=== PATIENT | female | born 1975 | race Caucasian/White ===

== ENCOUNTER 2025-11-02 02:32 | Inpatient (IN) | payer OTHER, SELFPAY ==
[2025-11-02] VITALS (27 sets, daily range): BP systolic 92–163; BP diastolic 49–106; PULSE 79–100; RESP 11–24; TEMP 36.4–36.8; O2SAT 92–99; BMI 29.9
--- NOTE | 2025-11-02 02:51 | ED.ABDPAIN ---
HPI - Abdominal Pain General Chief Complaint: Abdominal Pain Stated Complaint: R Side Pain Time Seen by Provider: 11/02/25 02:50 Source: patient Mode of arrival: Ambulatory History of Present Illness HPI narrative: 49y F hx of hysterectomy presents with RLQ pain that started at 1230am. Pt last ate yesterday afternoon. Has not had a bm since Thursday. Denies n/v/d, chest/back pain, sob, montero, leg pain/swelling, fever, chills, bodyache, urinary complaints. Other than what is stated 14 pt ROS is negative. Related Data Previous Rx's ?Medication ?Instructions ?Recorded amoxicillin 875 mg-potassium 875 mg (0.88 x 875-125 mg) PO Q8H 10/19/16 clavulanate 125 mg tablet #20 tabs (Augmentin) indomethacin 50 mg capsule 50 mg PO Q DAY #20 caps 10/19/16 Allergies Allergy/AdvReac Type Severity Reaction Status Date / Time No Known Drug Allergies Allergy Verified 11/02/25 02:42 Review of Systems Review of Systems ROS Unobtainable: All systems reviewed & are unremarkable except as noted in HPI and below Patient History tobacco type: vaping Exam Narrative Exam Narrative: GENERAL: [49] year old patient appears stated age. Well-developed patient, in mild distress. HEAD: Atraumatic. Normocephalic. EYES: Pupils equal round and reactive. Extraocular motions intact. No scleral icterus. No injection or drainage. ENT: Nose without bleeding, purulent drainage. Throat without erythema, tonsillar hypertrophy or exudate. Airway patent. NECK: Trachea midline. Non tender CARDIOVASCULAR: Regular rate and rhythm without murmurs, gallops, or rubs. RESPIRATORY: Clear to auscultation. Breath sounds equal bilaterally. No wheezes, rales, or rhonchi. GASTROINTESTINAL: Abdomen soft, non-tender, nondistended. EXTREMITIES: No edema or joint tenderness. BACK: Nontender without deformity or crepitance. No flank tenderness. NEURO: AOx3. SKIN: No rash or erythema of visible areas Initial Vital Signs Initial Vital Signs: Vital Signs Pulse Rate 100 H 11/02/25 02:39 Blood Pressure 129/85 11/02/25 02:39 Pulse Oximetry 95 11/02/25 02:39 Oxygen Delivery Method Room Air 11/02/25 02:39 Course Orders Ordered: ED Orders 12/18/25 02:48 Complete Blood Count AUTO DIFF Stat Comprehensive Metabolic Panel Stat Lipase Stat 11/02/25 03:01 CT abdomen pelvis w con Stat Ondansetron HCl (Ondansetron 4 Mg/2 Ml Inj) 4 mg IV NOW PRN PRN Reason: Nausea And Vomiting Ondansetron HCl (Ondansetron 4 Mg Odt) 4 mg PO NOW PRN PRN Reason: Nausea And Vomiting Discontinued Medications Hydromorphone HCl (Hydromorphone 1 Mg/Ml Syringe) 1 mg IV NOW ONE Stop: 11/02/25 03:38 Last Admin: 11/02/25 03:41 Dose: 1 mg Documented By: FRANKIE Lactated Ringer's (Lactated Ringers) 1,000 mls @ 1,000 mls/hr IV BOLUS ONE Stop: 11/02/25 04:01 Last Admin: 11/02/25 03:04 Dose: 1,000 mls/hr Documented By: FRANKIE Ketorolac Tromethamine (Ketorolac 30 Mg/Ml Vial) 15 mg IV NOW ONE Stop: 11/02/25 03:03 Last Admin: 11/02/25 03:05 Dose: 15 mg Documented By: FRANKIE Vital Signs Vital signs: Vital Signs - 8 hr 11/02/25 02:39 11/02/25 02:39 11/02/25 02:41 Temperature 97.6 F Pulse Rate 100 H 98 H Respiratory Rate 22 Blood Pressure 129/85 129/85 Pulse Oximetry 95 98 Oxygen Delivery Method Room Air Room Air 11/02/25 03:00 11/02/25 03:00 11/02/25 03:31 Temperature Pulse Rate 93 H 91 H Respiratory Rate 24 Blood Pressure 130/95 H Pulse Oximetry 97 97 Oxygen Delivery Method Room Air Room Air 11/02/25 03:46 11/02/25 03:46 Temperature Pulse Rate 92 H Respiratory Rate 24 Blood Pressure 129/75 Pulse Oximetry 99 Oxygen Delivery Method Room Air MDM - Abdominal Pain Lab Data 11/02/25 02:48 11/02/25 02:48 Labs: Lab Results 11/02/25 Range/Units 02:48 WBC 5.6 (4.5-11.0) X10^3/uL RBC 4.01 (4.0-5.2) X10^6/uL Hgb 13.5 (12.0-16.0) g/dL Hct 37.9 (36-46) % MCV 94.6 (80-100) fL MCH 33.7 (26-34) PG MCHC 35.6 (30-36) % RDW 12.7 (11.6-14.8) % Plt Count 285 (150-400) X10^3/uL Neut % (Auto) 51.0 (50-75) % Lymph % (Auto) 40.2 H (25-40) % [place] % (Auto) 6.2 (3-14) % Eos % (Auto) 1.4 L (2-4) % Baso % (Auto) 1.2 (0-2) % Neut # (Auto) 2800 (9494-6926) /uL Lymph # (Auto) 2200 (5372-9071) /uL [place] # (Auto) 300 (0-900) /uL Eos # (Auto) 100 (0-450) /uL Baso # (Auto) 100 (0-100) /uL Sodium 144 (137-145) mmol/L Potassium 4.4 (3.4-5.1) mmol/L Chloride 106 (98-107) mmol/L Carbon Dioxide 24 (22-32) mmol/L BUN 11 (7-17) mg/dL Creatinine 0.78 (0.52-1.04) mg/dL Estimated GFR > 60 (>60) mL/min BUN/Creatinine Ratio 14.1 (6-22) Glucose 114 H (70-99) mg/dL Calcium 9.5 (8.4-10.2) mg/dL Total Bilirubin 0.5 (0.2-1.3) mg/dL AST 25 (14-36) IU/L ALT 20 (<35) IU/L Alkaline Phosphatase 69 (38-126) U/L Total Protein 7.9 (6.3-8.2) g/dL Albumin 5.0 (3.5-5.0) g/dL Globulin 2.9 (1.7-4.1) g/dL Albumin/Globulin Ratio 1.7 (1.0-2.8) Lipase 3389 H (23-300) U/L Point of care testing: Urine Dip Bedside Urine Glucose Negative Bedside Urine Bilirubin - Negative Bedside Urine Ketone - Negative Urine Specific [place] 1.005 Bedside Urine Occult Blood - Negative Bedside Urine pH 6.0 Bedside Urine Protein - Negative Bedside Urine Urobilinogen - Negative Bedside Urine Nitrite - Negative Bedside Urine Leukocytes - Negative Esterase MDM Narrative Medical decision making narrative: All labwork, vital signs, casino cage manager note, medication list, previous ER visits and all imaging studies reviewed. WBC 5.6 hg 13.5 plt 285, lfts nml, tbili nml, lipase 3389. Ct scan showed no acute abnormality identified. Unremarkable appendix. Prior hysterectomy. Pt given LR 1L bolus x 2, toradol 15mg IV and dilaudid 1mg IV x2. Urine nml Differential dx appendicitis, cholecystitis, pancreatitis, sbo, constipation, kidney stone, kidney infection, diverticulitis. Case d/w hospitalist who has graciously accepted pt for inpatient admission Discharge Plan Departure Patient Disposition: Admitted as Observation Clinical Impression: Acute pancreatitis Admit Date/Time: 11/02/25 05:00 Admit Provider: Nasra Ibarra
--- NOTE | 2025-11-02 03:01 | DI.CT.S_ITS ---
PROCEDURE: CT ABDOMEN PELVIS W CON INDICATIONS: RLQ pain TECHNIQUE: After the administration of intravenous contrast, axial sections acquired from the lung bases to the pubic symphysis. Coronal and sagittal reformats were performed. For radiation dose reduction, the following was used: automated exposure control, adjustment of mA and/or kV according to patient size. COMPARISON: None. FINDINGS: Image quality: Diagnostic. Lower Chest: No significant findings. ABDOMEN: Liver: No solid mass. Gallbladder: No radiopaque gallstones or wall thickening. Biliary ducts: No biliary dilation. Pancreas: No ductal dilation. Spleen: Size is within normal limits. Adrenal Glands: No adrenal nodules. Kidneys and Ureters: No hydronephrosis. No solid mass. No complex renal cystic lesion which requires follow up. Stomach and Bowel: Normal colonic caliber, without significant wall thickening. Normal appendix. Peritoneum: No abnormal intraperitoneal fluid. No free air. Ventral Wall: No significant ventral hernia. Abdominal Nodes: No retroperitoneal or mesenteric adenopathy by size criteria. Vessels: Aorta and inferior vena cava are normal in size. Atherosclerotic vascular calcifications. PELVIS: Pelvic Organs: Prior hysterectomy. Bladder: No bladder wall thickening, accounting for underdistention. Pelvic Nodes: No enlarged lymph nodes. Miscellaneous: No inguinal hernias are seen. Bones: No aggressive osseous abnormality. Mild degenerative changes. IMPRESSION: No acute findings within the abdomen or pelvis. Findings are concordant with preliminary interpretation provided by [facility]. Dictated by: Sunny Puente M.D. on 11/02/2025 at 8:16 Approved by: Sunny Puente M.D. on 11/02/2025 at 8:20
[2025-11-02 03:04] LABS: Add Manual Diff / Slide Review NO; Hematocrit 37.9 % (36-46); Hemoglobin 13.5 g/dL (12.0-16.0); Lymphocytes Absolute Auto 2200 /uL (1100-4500); Mean Corpuscular HGB Conc 35.6 % (30-36); Mean Corpuscular Hemoglobin 33.7 PG (26-34); Mean Corpuscular Volume 94.6 fL (80-100); Platelet Count 285 X10^3/uL (150-400)
[2025-11-02] MEDS: LACTATED RINGERS 1,000 ML 1000 ML IV ×2 (03:04→05:05)
[2025-11-02] MEDS: KETOROLAC 30 MG/ML VIAL 15 MG IV (03:05)
[2025-11-02 03:09] LABS: Alanine Aminotransferase 20 IU/L (<35); Albumin 5.0 g/dL (3.5-5.0); Albumin Globulin Ratio 1.7 (1.0-2.8); Alkaline Phosphatase 69 U/L (38-126); Blood Urea Nitrogen 11 mg/dL (7-17); Calcium 9.5 mg/dL (8.4-10.2); Carbon Dioxide 24 mmol/L (22-32); Chloride 106 mmol/L (98-107); Estimated Glomerular Filt Rate > 60 mL/min (>60); Globulin 2.9 g/dL (1.7-4.1); Glucose 114 mg/dL (70-99); HEMOLYSIS < 15 (0-50); Potassium 4.4 mmol/L (3.4-5.1); Sodium 144 mmol/L (137-145); Total Protein 7.9 g/dL (6.3-8.2)
[2025-11-02 03:20] LABS: Lipase 3389 U/L (23-300)
--- NOTE | 2025-11-02 03:21 | PC.NURSE ---
P to imaging via ED stretcher with oxygen equipment technician
--- NOTE | 2025-11-02 04:09 | PC.NURSE ---
Pt ambulatory to restroom with some increased pain while standing.
[2025-11-02] MEDS: ONDANSETRON 4 MG/2 ML INJ IV ×2 (05:06→16:59)
--- NOTE | 2025-11-02 06:47 | PC.NURSE ---
Ambulatory to restroom without difficulty or assistance
--- NOTE | 2025-11-02 09:28 | DI.US.S_ITS ---
PROCEDURE: US ABDOMEN LIMITED INDICATIONS: acute pancreatitis TECHNIQUE: Real-time scanning was performed of the abdominal and retroperitoneal organs, with image documentation. COMPARISON: None. FINDINGS: Liver: Liver is normal in size and homogeneous in echotexture. Gallbladder: No gallstones. No wall thickening. No pericholecystic edema. Negative sonographic Lares's sign. Biliary ducts: Intrahepatic bile ducts are non-dilated. Extrahepatic bile duct caliber measures 6.1 mm. Normal is 6-7 mm or less in diameter, or 10 mm or less post-cholecystectomy. Pancreas: Visualized portions of the pancreas are sonographically normal. Miscellaneous: No free abdominal fluid. IMPRESSION: Common bile duct measures 6 mm which is within normal limits. No visible stones. Dictated by: Sven Fernandes M.D. on 11/02/2025 at 9:59 Approved by: Sven Fernandes M.D. on 11/02/2025 at 10:00
--- NOTE | 2025-11-02 13:24 | PC.NURSE ---
Call back from provider Chelsy, patient ok to have clear liquids. Patient provided with cranberry juice.
[2025-11-02] MEDS: SODIUM CHLORIDE 0.9% 1,000 ML 100 ML IV (13:53)
--- NOTE | 2025-11-02 14:38 | CM.DANOTE ---
DCP Assessment Note: Pt is a 49yo female, resident [facility], is admitted for acute pancreatitis. Pt lives in a house with her spouse, Emmanuel. Pt's Primary Care Provider is MARY Rios and [facility]. Reviewed chart and discussed with multidisciplinary team pt's medical status and initial discharge needs. Per Provider, admitted for IV fluid and pain management. DCP met w/patient at bedside; introduced self and role. Patient was found in bed, alert and oriented, cooperative with assessment. Pt confirmed living situation and good support in . Pt expressed preference in discharge home when cleared. Pt has no prior history of SNF Rehab or home health. Plan: Anticipating discharge home with spouse when medically cleared. CM team will follow closely for coordination of discharge plans. LUAN Brown Discharge Planning/Care Management CM Discharge Assessment Start: 11/02/25 06:34 Freq: Status: Active Protocol: Document 11/02/25 14:36 MW (Rec: 11/02/25 14:38 MW [id number]) Discharge Planning Assessment Assigned Discharge MARIA FERNANDA Coronel Pencil Inspector Provider MARY Rios Insurance [employer] DPOA/Assigned Emmanuel Keenan, Spouse Designee Name Contact Information [phone] Advance Directives? No History Provided By Patient,Family Member,Medical Record Has Patient been No admitted in last 30 days? Prior Living House Arrangements Household Members spouse Type of Drives own vehicle transporation used prior to admit Independent with ADL Yes 's Is patient alert and Yes oriented? Discharge Plan Home Review Status In Process Please Provide Date 11/02/25 Initial DC Assessment Was Performed Next Review Type Continued Stay Review
[2025-11-02] MEDS: ENOXAPARIN 40 MG/0.4 ML SYRINGE SUBCUT (16:58)
[2025-11-02] MEDS: SODIUM CHLORIDE 0.9% 1,000 ML 125 ML IV ×2 (17:02→22:55)
--- NOTE | 2025-11-02 18:12 | P.HP_ITS ---
History of Present Illness History of Present Illness Date Patient Seen: 11/02/25 Time Patient Seen: 18:12 Chief complaint: R Side Pain Narrative: This is a very pleasant 49 year-old female who is under the care of Sarahi HERNANDEZ and is fairly healthy other than Insomnia, perimenopause, depression. Patient presents to the ER with sudden onset on the day of presentation 11/01/2025 of severe abdominal pain. Patient's pain is in the right lower quadrant. She is having nausea and vomiting and unable to keep anything down without pain increasing and becoming nauseated. Workup in the ER revealed CT scan of the abdomen and pelvis which were entirely normal. Subsequent abdominal ultrasound ordered by me showed no gallstones or gallbladder thickening or sludge no common bile duct dilatation or other abnormalities. Lipase was found to be 3300. Normal white blood cell count remainder of labs were normal and it was determined that likely she had pancreatitis in needed admitted for further treatment and care. Patient has been receiving pain control with IV Dilaudid and received IV Toradol in the ER official. Patient is also complaining of headache. She recently met with correlates on Thursday with complaints of increased more chronic headaches that she was awakening with in the frontal area of her head. They had thought possibly this was related to the estradiol topical that she was prescribed and she stopped this and it did not get better. Patient does take down to help with sleep there is about possible sleep apnea and therefore she is getting asleep study. Patient has not been on any new medications. She has taken trazodone for quite awhile and taken venlafaxine for years. Patient does drink alcohol on the weekends around 3 beers but not during the week. A 12 point review of systems is negative No diarrhea in fact patient's last bowel movement was Thursday she tends to have irregular are infrequent bowel movement but not constipation. No mucus or blood in her stool. No once. No dysuria. No fever, no cough, no chills, no chest pain, no shortness a breath, no decreased exercise tolerance PND or orthopnea. No rash no recent travel. Patient has had a lot of stress in terms of financial stress Past medical history: Depression Insomnia Possible obstructive sleep apnea Tobacco use Headaches Past surgical history Hysterectomy with unilateral cell pain though oophorectomy of the right ovary No other surgeries EGD and colonoscopy in 2020 due to rectal bleeding and abdominal complaints which were both entirely negative Health related behavior: Alcohol as above Patient vapes nicotine on a regular basis Occasional marijuana use No illicit drug use Family history: Mom at 84, she had coronary artery disease and had a heart attack. Mom had diabetes as well Dad in his 90s. Dad had strokes Patient has 1 brother and she thinks he is healthy Patient has 3 sisters and she thinks they are healthy Patient has 2 sons and a daughter her healthy Social history: The patient is and is remarried in her has been is present and supportive. Patient lives in [place] Patient has a son who is 30 who lives on his own in [place] and a son who is 18 and a daughter who is 21 who live with their father [facility] Social History household members: spouse Smoking Status: Current every day smoker alcohol intake: current Meds Home Medications and Allergies Home Medications ?Medication ?Instructions ?Recorded ?Confirmed ?Type trazodone 50 mg tablet 50 mg PO ONCE PM 11/02/25 History venlafaxine 150 mg 150 mg PO DAILY 11/02/25 History capsule,extended release 24 hr Allergies Allergy/AdvReac Type Severity Reaction Status Date / Time No Known Drug Allergies Allergy Verified 11/02/25 02:42 Exam Vital Signs (past 8 hours): - 11/02/25 10:30 11/02/25 11:00 11/02/25 11:17 Temperature Pulse Rate 80 83 Respiratory Rate Blood Pressure 132/74 Pulse Oximetry 92 95 11/02/25 11:17 11/02/25 11:30 11/02/25 11:30 Temperature Pulse Rate 82 86 Respiratory Rate Blood Pressure 122/56 L Pulse Oximetry 97 94 11/02/25 12:00 11/02/25 12:00 11/02/25 12:30 Temperature Pulse Rate 79 81 Respiratory Rate Blood Pressure 126/64 Pulse Oximetry 94 97 11/02/25 12:30 11/02/25 13:00 11/02/25 13:00 Temperature Pulse Rate 82 Respiratory Rate Blood Pressure 163/106 H 117/65 Pulse Oximetry 92 11/02/25 13:39 11/02/25 13:39 11/02/25 14:00 Temperature Pulse Rate 95 H 90 Respiratory Rate Blood Pressure 143/90 H Pulse Oximetry 94 92 12/18/25 14:00 11/02/25 14:30 11/02/25 14:30 Temperature Pulse Rate 90 Respiratory Rate Blood Pressure 146/83 H 154/88 H Pulse Oximetry 93 11/02/25 15:38 Temperature 97.7 F Pulse Rate 80 Respiratory Rate 18 Blood Pressure 142/95 H Pulse Oximetry 96 Oxygen Delivery Method Room Air Narrative Exam Narrative: Afebrile vital signs are stable Patient is alert and oriented x3 in no apparent distress in his excellent historian HEENT is unremarkable Neck is supple without adenopathy patient does have some paravertebral muscle spasm. No masses Chest: Clear to auscultation without wheezes rhonchi or crackles Cor: Regular rate rhythm with distant S1-S2 Abdomen: Positive bowel sounds but hypoactive. Patient is most tender in her right lower quadrant and minimally in the mid upper abdomen No guarding or rebound. No peritoneal signs no obvious hepatosplenomegaly Extremities no edema pulses intact Neurologic exam nonfocal Skin no rashes Objective Labs 11/02/25 02:48 11/02/25 02:48 Labs: Laboratory Results - last 24 hr 11/02/25 02:48 WBC 5.6 RBC 4.01 Hgb 13.5 Hct 37.9 MCV 94.6 MCH 33.7 MCHC 35.6 RDW 12.7 Plt Count 285 Neut % (Auto) 51.0 Lymph % (Auto) 40.2 H [place] % (Auto) 6.2 Eos % (Auto) 1.4 L Baso % (Auto) 1.2 Neut # (Auto) 2800 Lymph # (Auto) 2200 [place] # (Auto) 300 Eos # (Auto) 100 Baso # (Auto) 100 Sodium 144 Potassium 4.4 Chloride 106 Carbon Dioxide 24 BUN 11 Creatinine 0.78 Estimated GFR > 60 BUN/Creatinine Ratio 14.1 Glucose 114 H Calcium 9.5 Total Bilirubin 0.5 AST 25 ALT 20 Alkaline Phosphatase 69 Total Protein 7.9 Albumin 5.0 Globulin 2.9 Albumin/Globulin Ratio 1.7 Lipase 3389 H Assessment & Plan Assessment & Plan narrative: 49-year-old otherwise fairly healthy patient with abdominal pain, sudden onset and findings most suggestive of idiopathic pancreatitis though atypical presentation in the she is mainly hurting in her right lower quadrant CT scan shows no evidence of diverticulitis or coli lithiasis or nephrolithiasis or appendicitis. Plan: Patient will be admitted to the hospital Will provide pain control with IV Dilaudid. I do not think that this is contributing to the headaches but if they do not improve we may need to switch to morphine. Will provide lorazepam to take as needed perhaps this will help with the headache and help with the pain. We attempted clear liquid diet but patient was unable to tolerate so she will be NPO except for ice chips and meds with sips Will reassess labs in a.m. If symptoms not improving and still with primarily right lower quadrant pain will consult surgery Assessment 2. Headaches Plan: Will treat pain and provide lorazepam see if this is beneficial. Once tolerating p.o. we could try propranolol If not improving or worsening image head Assessment 3. Insomnia Plan: Sleep test as outpatient Continue trazodone Assessment 4. Depression Plan: Will continue venlafaxine 150 mg daily Assessment 5. Alcohol use. I do not think she is at risk for withdrawing but we will provide lorazepam to use as needed. I do not think alcohol is a etiology of pancreatitis at this time Code status is full code GI prophylaxis with pantoprazole DVT prophylaxis with Lovenox 76 minutes spent with the patient reviewing her clinic chart, ER workup, discussing with nursing and physicians in meeting with patient and her and formulating a plan and documentation Time-Based Coding :: [TOTAL MINUTES] spent with patient and on the chart (including review of chart, obtaining history, exam, reviewing outside data, placing orders, documenting exam and treatment plan, and counseling patient) on [DATE]. Quality VTE Deep Vein Thrombosis/Pulmonary Embolism Present on Admission: No
[2025-11-02] MEDS: PANTOPRAZOLE 40 MG VIAL IV (18:53)
[2025-11-02] MEDS: DOCUSATE 100 MG CAPSULE PO (23:54)
[2025-11-03 03:00] VITALS: BP 134/86; PULSE 58; RESP 15; TEMP 36.6; O2SAT 99
[2025-11-03 05:54] LABS: Alanine Aminotransferase 18 IU/L (<35); Albumin 4.0 g/dL (3.5-5.0); Albumin Globulin Ratio 1.6 (1.0-2.8); Alkaline Phosphatase 74 U/L (38-126); Amylase 72 U/L (30-110); Blood Urea Nitrogen 11 mg/dL (7-17); Calcium 8.2 mg/dL (8.4-10.2); Carbon Dioxide 27 mmol/L (22-32); Chloride 104 mmol/L (98-107); Estimated Glomerular Filt Rate > 60 mL/min (>60); Globulin 2.5 g/dL (1.7-4.1); Glucose 90 mg/dL (70-99); HEMOLYSIS < 15 (0-50); Potassium 3.8 mmol/L (3.4-5.1); Sodium 139 mmol/L (137-145); Total Protein 6.5 g/dL (6.3-8.2)
[2025-11-03 05:57] LABS: Lipase 134 U/L (23-300)
[2025-11-03 06:19] LABS: Add Manual Diff / Slide Review NO; Hematocrit 34.8 % (36-46); Hemoglobin 12.5 g/dL (12.0-16.0); Lymphocytes Absolute Auto 1800 /uL (1100-4500); Mean Corpuscular HGB Conc 36.0 % (30-36); Mean Corpuscular Hemoglobin 34.2 PG (26-34); Mean Corpuscular Volume 95.2 fL (80-100); Platelet Count 243 X10^3/uL (150-400)
[2025-11-03] MEDS: SODIUM CHLORIDE 0.9% 1,000 ML 125 ML IV (06:50)
[2025-11-03 08:00] VITALS: BP 147/97; PULSE 80; RESP 17; TEMP 36.7; O2SAT 98
[2025-11-03] MEDS: DOCUSATE 100 MG CAPSULE PO ×2 (08:10→20:25)
[2025-11-03] MEDS: VENLAFAXINE ER 75 MG CAP 150 MG PO (08:10)
[2025-11-03] MEDS: ENOXAPARIN 40 MG/0.4 ML SYRINGE SUBCUT (08:11)
[2025-11-03] MEDS: PANTOPRAZOLE 40 MG VIAL IV (08:12)
--- NOTE | 2025-11-03 13:23 | PM.PN.1 ---
Subjective Subjective Interval history: [facility]. Was admitted with pancreatitis with markedly high lipase. Normalized by today. Patient denies any consistent drinking. She is still feeling moderate amount of pain and having to use IV pain medication. She now describes the pain as lower quadrants slightly worse on the right than the left. Slightly nauseated although was able to eat some full liquids today. She has not had any blood in her stool or other change. She has had a hysterectomy with only her left ovary remaining. Patient otherwise just not feeling well today. With no definitive other findings Exam Vital Signs (past 8 hours): - 11/03/25 08:00 Temperature 98.0 F Pulse Rate 80 Respiratory Rate 17 Blood Pressure 147/97 H Pulse Oximetry 98 Oxygen Flow Rate 0 Oxygen Delivery Method Room Air Oxygen Flow Rate 0 Narrative Exam Narrative: Alert female fatigued in appearance in no acute distress HEENT exam is unremarkable mucous membranes moist neck supple without adenopathy JVD or bruits lungs are clear heart is regular rate and rhythm abdomen is soft positive bowel sounds she is got lower quadrant tenderness across the abdomen definitely worse on the right lower quadrant. No rebound no guarding. Skin color is normal Objective Labs 11/03/25 05:00 11/03/25 05:00 Labs: Laboratory Results - last 24 hr 11/03/25 05:00 WBC 5.2 RBC 3.66 L Hgb 12.5 Hct 34.8 L MCV 95.2 MCH 34.2 H MCHC 36.0 RDW 13.1 Plt Count 243 Neut % (Auto) 55.7 Lymph % (Auto) 35.2 [place] % (Auto) 6.5 Eos % (Auto) 1.7 L Baso % (Auto) 0.9 Neut # (Auto) 2900 Lymph # (Auto) 1800 [place] # (Auto) 300 Eos # (Auto) 100 Baso # (Auto) 0 Sodium 139 Potassium 3.8 Chloride 104 Carbon Dioxide 27 BUN 11 Creatinine 0.72 Estimated GFR > 60 BUN/Creatinine Ratio 15.3 Glucose 90 Calcium 8.2 L Total Bilirubin 0.9 AST 26 ALT 18 Alkaline Phosphatase 74 Total Protein 6.5 Albumin 4.0 Globulin 2.5 Albumin/Globulin Ratio 1.6 Amylase 72 Lipase 134 D [facility] Social History household members: spouse Smoking Status: Current every day smoker alcohol intake: current Assessment & Plan Assessment & Plan narrative: Abdominal pain. Patient initially presented what appeared to be pancreatitis. Possibly idiopathic. Certainly ultrasound did not show any stones CT scan showed no masses or abnormality of the pancreas. Lipase is normalized at this point. Now seems to be having lower quadrant discomfort. Certainly worse in the right side. Certainly does not have a surgical abdomen but I am not sure exactly what this represents. She has reported not to have an ovary on that side she does have her appendix I think it has a low likelihood this is appendicitis. Will check urine I do not see that 1 has been obtained kidney stones unlikely given normal CT scan but will check to make sure there was no blood or signs of infection. At this point could be an ileus secondary to her pancreatitis and just slowly improving. We will switch to oral pain meds. We increased her diet today. We will continue fluids. I suspect she will be here until tomorrow and hopefully will go from there. At this point will have Dr. Mock see to make sure I am not missing something. In the unlikely event that this is possibly secondary to her appendix. I think that is low likelihood. She understands. We will see how things go. I will check another L. Headaches. Appear to be resolving. Insomnia. Trazodone. Continue. Depression. Continue Effexor. Alcohol use said to not be very frequent. Is on lorazepam as needed. Will see how things go. Code status full GI prophylaxis on pantoprazole DVT prophylaxis on Lovenox Disposition. Still having moderate amount of pain. Maybe just related to her pancreatitis probably will be here through today maybe discharge tomorrow she continues to improve based on surgical consult. 55 minutes spent with patient chart review orders nursing dictation Time-Based Coding :: [TOTAL MINUTES] spent with patient and on the chart (including review of chart, obtaining history, exam, reviewing outside data, placing orders, documenting exam and treatment plan, and counseling patient) on [DATE]. Quality VTE Deep Vein Thrombosis/Pulmonary Embolism Present on Admission: No
[2025-11-03] MEDS: SODIUM CHLORIDE 0.9% 1,000 ML 75 ML IV (13:55)
--- NOTE | 2025-11-03 14:31 | PM.CN.IH.1 ---
History of Present Illness Consult details Date Patient Seen: 11/03/25 Time Patient Seen: 14:31 Chief complaint: R Side Pain Narrative: Stacey is a 49-year-old woman who presented to the emergency room with several days of abdominal pain. She was noted to have an elevated lipase of over [address] scan was normal. An ultrasound was performed which showed no cholelithiasis or sludge. Today her lipase is down to normal levels. She continues to have pain and decreased appetite. Meds Home Medications and Allergies Home Medications ?Medication ?Instructions ?Recorded ?Confirmed ?Type trazodone 50 mg tablet 50 mg PO ONCE PM 11/02/25 11/02/25 History venlafaxine 150 mg 150 mg PO DAILY 11/02/25 11/02/25 History capsule,extended release 24 hr Allergies Allergy/AdvReac Type Severity Reaction Status Date / Time No Known Drug Allergies Allergy Verified 11/02/25 02:42 Exam Vital Signs (past 8 hours): - 11/03/25 08:00 Temperature 98.0 F Pulse Rate 80 Respiratory Rate 17 Blood Pressure 147/97 H Pulse Oximetry 98 Oxygen Flow Rate 0 Oxygen Delivery Method Room Air Oxygen Flow Rate 0 Narrative Exam Narrative: Abdomen is soft, generalized tenderness to palpation without guarding Objective Labs 11/03/25 05:00 11/03/25 05:00 Labs: Laboratory Results - last 24 hr 11/03/25 05:00 WBC 5.2 RBC 3.66 L Hgb 12.5 Hct 34.8 L MCV 95.2 MCH 34.2 H MCHC 36.0 RDW 13.1 Plt Count 243 Neut % (Auto) 55.7 Lymph % (Auto) 35.2 [place] % (Auto) 6.5 Eos % (Auto) 1.7 L Baso % (Auto) 0.9 Neut # (Auto) 2900 Lymph # (Auto) 1800 [place] # (Auto) 300 Eos # (Auto) 100 Baso # (Auto) 0 Sodium 139 Potassium 3.8 Chloride 104 Carbon Dioxide 27 BUN 11 Creatinine 0.72 Estimated GFR > 60 BUN/Creatinine Ratio 15.3 Glucose 90 Calcium 8.2 L Total Bilirubin 0.9 AST 26 ALT 18 Alkaline Phosphatase 74 Total Protein 6.5 Albumin 4.0 Globulin 2.5 Albumin/Globulin Ratio 1.6 Amylase 72 Lipase 134 D PFSH Social History household members: spouse Tobacco & Substance Use Smoking Status: Current every day smoker alcohol intake: current Assessment & Plan Assessment and plan (1) Acute pancreatitis: Qualifiers: Pancreatitis type: unspecified pancreatitis type Acute pancreatitis complication: no infection or necrosis Qualified Code(s): K85.90 - Acute pancreatitis without necrosis or infection, unspecified Status: Acute Plan I agree with the current management strategy. Continue IV fluids and gradually advance diet as tolerates. No radiological indication of gallstone pancreatitis. Time-Based Coding :: [TOTAL MINUTES] spent with patient and on the chart (including review of chart, obtaining history, exam, reviewing outside data, placing orders, documenting exam and treatment plan, and counseling patient) on [DATE]. PROFEE Charge Codes Inpatient or Observation consultation: [id number]
[2025-11-03 14:34] LABS: Appearance Urine UA CLEAR; Bilirubin Urine UA NEGATIVE (NEGATIVE); Color Urine UA YELLOW; Glucose Urine UA NEGATIVE (Negative); Ketones Urine UA NEGATIVE (NEGATIVE); Leukocyte Esterase Urine UA NEGATIVE (NEGATIVE); Nitrite Urine UA NEGATIVE (Negative); Occult Blood Urine UA NEGATIVE (Negative); Protein Urine UA NEGATIVE (Negative); Specific Gravity Urine UA <=1.005 (1.000-1.035); Urobilinogen Urine UA 0.2 E.U./dL (0.2)
[2025-11-03 14:35] LABS: pH Urine UA 6.5 (4.5-8.0)
[2025-11-03 16:17] VITALS: BP 151/85; PULSE 80; RESP 19; TEMP 37; O2SAT 98
[2025-11-04] VITALS: BP 141/85; PULSE 73; RESP 16; TEMP 36.6; O2SAT 97
[2025-11-04] MEDS: SODIUM CHLORIDE 0.9% 1,000 ML 75 ML IV (05:20)
[2025-11-04 08:10] VITALS: BP 154/90; PULSE 65; RESP 16; TEMP 36.3; O2SAT 98
[2025-11-04] MEDS: DOCUSATE 100 MG CAPSULE PO ×2 (09:13→22:15)
[2025-11-04] MEDS: VENLAFAXINE ER 75 MG CAP 150 MG PO (09:13)
[2025-11-04] MEDS: ENOXAPARIN 40 MG/0.4 ML SYRINGE SUBCUT (09:15)
[2025-11-04] MEDS: PANTOPRAZOLE 40 MG VIAL IV (09:16)
--- NOTE | 2025-11-04 10:08 | DI.CT.S_ITS ---
PROCEDURE: CT HEAD/BRAIN WO CON INDICATIONS: headaches TECHNIQUE: Noncontrast 4.5 mm thick angled axial sections acquired from the foramen magnum to the vertex, with coronal and sagittal reformats. For radiation dose reduction, the following was used: automated exposure control, adjustment of mA and/or kV according to patient size. COMPARISON: None. FINDINGS: Image quality: Diagnostic. CSF spaces: Basal cisterns are patent. No extra-axial fluid collections. Ventricles are normal in size and shape. Brain: No midline shift. No intracranial mass effect or hemorrhage. Chairez- white matter interface is normal. Skull and face: Calvarium and visualized facial bones are intact, without suspicious lesions. Sinuses: Visualized sinuses and mastoids are clear. IMPRESSION: No acute intracranial pathology. Dictated by: Donald Marks M.D. on 11/04/2025 at 12:01 Approved by: Donald Marks M.D. on 11/04/2025 at 12:01
--- NOTE | 2025-11-04 10:10 | P.PN_ITS ---
Subjective Subjective Date Patient Seen: 11/04/25 Time Patient Seen: 10:10 Interval history: Patient's history reason for admission etcetera reviewed. Spoke with Dr. Asif last evening This morning patient is still complaining of some right flank discomfort. Says might even be a little worse than when she first came to the hospital but overall feeling better. Tolerating full liquids without any increased symptoms whatsoever as far she is aware. Still having severe headaches actually worse than they have been. Headaches have been an ongoing issue from prior to hospitalization and she is working with her PCP to try and sort that out. Headache she is currently having her a little bit worse lots of facial pressure. No cold or flu symptoms fever chills nausea vomiting head pressure congestion ears popping coughing sore throat etcetera Struggling to sleep a bit wonders if perhaps that is contributing to her headaches and/or her abdominal/flank pain etcetera Exam Vital Signs (past 8 hours): - 11/04/25 08:10 Temperature 97.3 F L Pulse Rate 65 Respiratory Rate 16 Blood Pressure 154/90 H Pulse Oximetry 98 Oxygen Flow Rate 0 Oxygen Delivery Method Room Air Oxygen Flow Rate 0 Objective Labs 11/03/25 05:00 11/03/25 05:00 Labs: Laboratory Results - last 24 hr 11/03/25 14:25 Urine Color Yellow Urine Appearance Clear Urine pH 6.5 Ur Specific Crump <=1.005 Urine Protein Negative Urine Glucose (UA) Negative Urine Ketones Negative Urine Occult Blood Negative Urine Nitrate Negative Urine Bilirubin Negative Urine Urobilinogen 0.2 Ur Leukocyte Esterase Negative Urine RBC None seen Urine WBC None seen Ur Squamous Epith Cells 0-1 /hpf Urine Bacteria None seen Vol Urine Centrifuged 10ml (spun) [facility] Social History household members: spouse Smoking Status: Current every day smoker alcohol intake: current Assessment & Plan Assessment & Plan narrative: 1. Abdominal pain with evidence of pancreatitis biochemically-labs had resolved rather quickly. Symptoms are not really an area for pancreatitis with a bit puzzling. No findings on CT and was seen by General surgery yesterday he did not feel like there was evidence of any biliary tract issues or other significant intra-abdominal issues Patient feels like she should have a bowel movement perhaps that is a contributing factor and will work on getting her bowels moving with suppositories and/or oral stimulants etcetera Will advance diet given her stability and overall improvement at least on lab work etcetera I think it is okay to DC IV fluids as well since she is taking orals without particular difficulty. 2. Headaches-as long as she is in the hospital go ahead and obtain noncontrast enhanced head CT to rule out significant intra cranial pathology causing headaches which seems like a remote possibility. Continue workup with PCP as an outpatient regarding headaches including sleep apnea evaluation etcetera 3. Insomnia-continue with trazodone but up the dose slightly to 75 mg daily, see if that is more effective than the 50 mg 4. Depression-continue patient's usual venlafaxine 5. GI prophylaxis-switch off of IV pantoprazole to oral meds. Continue to monitor for increasing symptoms 6. Disposition-patient likely can go home either later this afternoon or perhaps tomorrow. May need a small quantity of oxycodone to help manage pain at home Time-Based Coding :: [TOTAL MINUTES] spent with patient and on the chart (including review of chart, obtaining history, exam, reviewing outside data, placing orders, documenting exam and treatment plan, and counseling patient) on [DATE]. Quality VTE Deep Vein Thrombosis/Pulmonary Embolism Present on Admission: No [facility] PROFEE Hand Umbrella Tipper Document charge(s): Yes Charge Codes Subsequent inpatient/observation care: 97839
[2025-11-04] MEDS: MAGNESIUM HYDROXIDE 30 ML UDC PO (11:04)
[2025-11-04] MEDS: BISACODYL 5 MG TABLET 10 MG PO (11:04)
[2025-11-04] MEDS: BISACODYL 10 MG SUPP PR ×2 (11:08→13:12)
[2025-11-04] MEDS: MINERAL OIL 1 EACH ENEMA PR (15:53)
[2025-11-04 20:00] VITALS: BP 143/92; PULSE 79; RESP 14; TEMP 36.6; O2SAT 100
[2025-11-04] MEDS: PANTOPRAZOLE DR 40 MG TABLET PO (22:15)
[2025-11-05] MEDS: PANTOPRAZOLE DR 40 MG TABLET PO (06:51)
[2025-11-05 08:07] VITALS: BP 120/79; PULSE 69; RESP 18; TEMP 36.7; O2SAT 99
[2025-11-05] MEDS: VENLAFAXINE ER 75 MG CAP 150 MG PO (09:42)
[2025-11-05] MEDS: ENOXAPARIN 40 MG/0.4 ML SYRINGE SUBCUT (09:43)
[2025-11-05] MEDS: DOCUSATE 100 MG CAPSULE PO (09:43)
[2025-11-05] MEDS: SODIUM CHLORIDE 0.9% FLUSH 10 ML IV (09:43)
--- NOTE | 2025-11-05 10:16 | P.DS_ITS ---
History of Present Illness History of Present Illness Date Patient Seen: 11/05/25 Time Patient Seen: 10:17 Chief complaint: R Side Pain Narrative: This is a very pleasant 49 year-old female who is under the care of Sarahi HERNANDEZ and is fairly healthy other than Insomnia, perimenopause, depression. Patient presents to the ER with sudden onset on the day of presentation 11/01/2025 of severe abdominal pain. Patient's pain is in the right lower quadrant. She is having nausea and vomiting and unable to keep anything down without pain increasing and becoming nauseated. Workup in the ER revealed CT scan of the abdomen and pelvis which were entirely normal. Subsequent abdominal ultrasound ordered by me showed no gallstones or gallbladder thickening or sludge no common bile duct dilatation or other abnormalities. Lipase was found to be 3300. Normal white blood cell count remainder of labs were normal and it was determined that likely she had pancreatitis in needed admitted for further treatment and care. Patient has been receiving pain control with IV Dilaudid and received IV Toradol in the ER official. Patient is also complaining of headache. She recently met with correlates on Thursday with complaints of increased more chronic headaches that she was awakening with in the frontal area of her head. They had thought possibly this was related to the estradiol topical that she was prescribed and she stopped this and it did not get better. Patient does take down to help with sleep there is about possible sleep apnea and therefore she is getting asleep study. Patient has not been on any new medications. She has taken trazodone for quite awhile and taken venlafaxine for years. Patient does drink alcohol on the weekends around 3 beers but not during the week. {from Dr. Valentino's H&P 11/02/2025} Discharge Providers Provider Date of admission: 11/02/25 05:00 Discharge Date: 11/05/25 Primary care physician: MARY Rios Consults: 11/03/25 08:40 Consult to Physician Routine Comment: Consulting Provider: Karel Mock Reason for consultation: abd pain Has provider been notified: Yes Discharge provider: Armin Dillon MD Summary Hospital Course Discharge Diagnosis: 1. Pancreatitis 2. Right-sided abdominal pain of uncertain etiology 3. Chronic daily headache 4. Insomnia 5. Depression Hospital Course: As above patient was admitted with a diagnosis of pancreatitis based on elevated lipase. She was kept NPO with medication for nausea and pain. Over the first several hours her symptoms improved some and biochemically her pancreatitis resolved with a completely normal lipase. She persisted with right-sided sort of abdominal/flank discomfort. Not clear what was causing this pain and discomfort. No findings on her initial CT imaging to explain this. She also had an abdominal ultrasound performed looking for further evidence of biliary tract disease and this was also considered normal with no findings She was seen in consultation by General surgery who did not feel like she had a surgical abdomen or likely even had gallstone pancreatitis or anything like that She did seem to be somewhat constipated and efforts to produce bowel movements did seem to be beneficial overall in her pain symptoms. She will be continued on a fiber supplement in an effort to improve her GI tract upon discharge She also complained of chronic daily headaches which is a problem that had started prior to admission. She is being evaluated through her PCP for possible sleep apnea etcetera. Head CT was performed which failed to demonstrate any abnormality including no sinusitis no evidence of hemorrhage or large volume tumor mass etcetera By morning of discharge patient was improved although still complaining of some right abdominal/flank pain. Headaches were somewhat improved but still present She was using minimal amounts of Percocet for pain management and a limited prescription for this will be sent for discharge Status at Discharge Cognitive/behavioral status at discharge: at baseline, oriented Functional status at discharge: independent ambulation Overall status at discharge: patient is progressing back to baseline Time Spent with Patient Time spent: Less than 30 minutes Exam Vital Signs (past 8 hours): - 11/05/25 08:07 Temperature 98.0 F Pulse Rate 69 Respiratory Rate 18 Blood Pressure 120/79 Pulse Oximetry 99 Oxygen Flow Rate 0 Oxygen Delivery Method Room Air Oxygen Flow Rate 0 Objective Labs 11/03/25 05:00 11/03/25 05:00 [facility] Social History household members: spouse Smoking Status: Current every day smoker alcohol intake: current Discharge Assessment & Plan Assessment and Plan Plan of Treatment: Continue with conservative management and efforts to improve motility through her GI tract with fiber supplement such as Benefiber Complete and continue outpatient workup for cause of chronic daily headaches including potentially sleep apnea Close follow-up with PCP Discharge Plan Discharge Plan Patient Disposition: Home Discharge orders & Medications Prescriptions: New oxycodone-acetaminophen 5-325 mg Tablet 1 tab PO Q4-8H PRN (Reason: Pain, Moderate (4-6)) Qty: 15 0RF Benefiber Prebiotic Fiber Supplement See Rx Instructions .ROUTE .COMPLEX Qty: 248 4RF Rx Instructions: 2-4 tsp daily with water/juice/coffee Continued venlafaxine 150 mg capsule,extended release 24hr 150 mg PO DAILY Changed trazodone 50 mg tablet 50 - 75 mg PO BEDTIME Qty: 90 0RF Follow up/Referrals: Sarahi Nicole ARNP [Primary Care Provider, Family Practice] - 2 Weeks Discharge Health Status Multidrug resistant organism: No MDRO Diet/Activity/Treatments Diet: Diet as Tolerated Visit Report/Discharge Packet Stand Alone Forms: [employer], Patient Portal/API, Stroke Signs & Symptoms, Influenza Vaccine Info, Notice of Privacy Practices, Inpatient vs Outpatient, Pneumococcal Vaccine Info, Pt. Rights & Responsibilities Discharge Data Primary Care Provider: Sarahi Nicole Quality VTE Deep Vein Thrombosis/Pulmonary Embolism Present on Admission: No [facility] PROFEE Charge Codes Discharge inpatient/observation: [id number]
--- NOTE | 2025-11-05 10:57 | PC.NURSE ---
Discharge note: Alert and oriented, ambulatory, dressed self. Had BM this am, voiding, and tolerating diet. Discharge instructions given to patient, discussed importance of F/U with PMD in 2 weeks and signs of worsening symptoms. Home via private vehicle accompanied by spouse. Will stop by [facility] on way home for Rx.
== END 2025-11-05 11:20 | disposition home or self-care (01) | DRG 440 ==
LOC: ED 03:01 → AC 05:01
PROVIDERS: Family Medicine; Admitting Provider Family Medicine; Emergency Provider Family Medicine; PCP Registered Nurse; Referring Provider Family Medicine; Visit Provider Family Medicine
DX: K85.90 Acute pancreatitis without necrosis or infection, unspecified (principal); R51.9 Headache, unspecified; F17.200 Nicotine dependence, unspecified, uncomplicated; G47.00 Insomnia, unspecified; F32.A Depression, unspecified; F10.90 Alcohol use, unspecified, uncomplicated; R10.A1 Flank pain, right side; K59.00 Constipation, unspecified
CPT/HCPCS: 36415; 70450; 74177; 76705; 80053; 81001; 81003; 82150; 83690; 85025; 96361; 96374; 96375; 96376; 99284; J1171; J1650; J1885; J2060; J2405; J2470; J7030; J7120; Q9967